=== PATIENT | female | born 1990 | race Caucasian/White ===

== ENCOUNTER 2022-03-23 15:50 | Observation (INO) ==
[2022-03-23 19:55] LABS: Hematocrit 42.3 % (35.3-44.9); Hemoglobin 14.3 g/dL (11.5-15.4); Mean Corpuscular HGB Conc 33.8 g/dL (31.6-35.5); Mean Corpuscular Hemoglobin 29.8 pg (28.0-33.3); Mean Corpuscular Volume 88.1 fL (83.0-100.0); Mean Platelet Volume 10.5 fL (9.4-12.4); Platelet Count 211 K/mcL (140-400); Red Cell Distribution Width 13.3 % (11.5-14.5); White Blood Count 12.1 K/mcL (4.3-11.1)
[2022-03-23 20:16] LABS: Alanine Aminotransferase 13 Units/L (7-52); Albumin 3.9 g/dL (3.5-5.7); Albumin/Globulin Ratio 1.4 (1.1-2.2); Alkaline Phosphatase 91 Units/L (34-104); Aspartate Amino Transferase 15 Units/L (13-39); BUN/Creatinine Ratio 25 (6-26); Bilirubin,Total 0.3 mg/dL (0.3-1.0); Blood Urea Nitrogen 14 mg/dL (6-20); Calcium 8.8 mg/dL (8.6-10.3); Carbon Dioxide 24 mEq/L (23-29); Chloride 107 mEq/L (98-107); Globulin 2.8 g/dL (2.4-3.5); Glucose 96 mg/dL (70-105); Osmolality,Calculated 284 (280-300); Potassium 3.9 mEq/L (3.5-5.1); Sodium 137 mEq/L (136-145); Total Protein 6.7 g/dL (6.4-8.9); eGFR For African Americans > 60 (> 60); eGFR For Non-African Americans > 60 (> 60)
[2022-03-23 22:47] LABS: Hepatitis B Surface Antigen Nonreactive (Nonreactive)
[2022-03-23 23:15] LABS: Hepatitis C Virus Antibody Nonreactive (Nonreactive)
[2022-03-23 23:18] LABS: Hepatitis B Core IgM Nonreactive (Nonreactive)
[2022-03-23 23:21] LABS: Hepatitis A Antibody IgM Nonreactive (Nonreactive)
[2022-03-24 02:38] VITALS: PULSE 75; O2SAT 94
[2022-03-24 07:28] VITALS: BP 101/56; TEMP 98.1
[2022-03-26 14:59] LABS: QuantiFERON Mitogen minus NIL >10.00 IU/mL
[2022-03-27 09:40] LABS: QuantiFERON NIL 0.01 IU/mL; QuantiFERON-TB Gold In-Tube NEGATIVE (Negative)
== END 2022-03-24 10:24 | disposition home or self-care (01) ==
LOC: 3BNU → SUATTDRO 15:52
PROVIDERS: ADMIT Pharmacist; ATTEND Nurse Practitioner